=== PATIENT | female | born 1995 | race Caucasian/White ===

== ENCOUNTER 2020-09-06 16:29 | Inpatient (IN) | payer MEDICAID ==
[~2020-09-06] VITALS: Ht 160 cm; Wt 60.3 kg
[2020-09-06] MEDS ORDERED: ONDANSETRON ODT 4 MG PO PRN (17:00)
[2020-09-06] MEDS ORDERED: DOCUSATE 100 MG CAPSULE PO PRN (17:00)
[2020-09-06] MEDS ORDERED: POLYETHYLENE GLYCOL 17 GM PACKET PO PRN (17:00)
[2020-09-06] MEDS ORDERED: BISACODYL 10 MG SUPP PR PRN (17:00)
[2020-09-06 18:38] VITALS: BP 108/64
[2020-09-06 19:19] VITALS: BP 102/66
[2020-09-06 19:24] VITALS: BP 108/64
[2020-09-07 07:04] LABS: CHOLESTEROL, TOTAL 159 mg/dL (140-239); TRIGLYCERIDES 52 mg/dL (50-200); VLDL CHOLESTEROL 10 mg/dL (0-25)
[2020-09-07 07:07] LABS: CHOL/HDL RATIO 2.8; FREE T4 (FREE THYROXINE) 1.12 ng/dL (0.76-1.46); HDL CHOL % 36 % (28-40); HDL CHOLESTEROL (DIRECT) 57 mg/dL (40-60); LDL CHOLESTEROL,CALCULATED 92 mg/dL (54-169); LDL/HDL RATIO 1.6 (0.5-3.0)
[2020-09-07 07:45] VITALS: BP 93/61
[2020-09-07] MEDS: NICOTINE 7 MG/24 HR PATCH.TD24 TD SCH (08:45)
[2020-09-07] MEDS ORDERED: FLU VACC QS2020-21(6MOS UP)/PF 60MCG/0.5 ML SYR IM ONE ×2 (09:00→11:30)
[2020-09-07 13:22] LABS: MICROSCOPIC INDICATED
[2020-09-07] MEDS: ACETAMINOPHEN 325 MG TABLET PO PRN (16:29)
[2020-09-07] MEDS: CIPROFLOXACIN 250 MG TABLET PO SCH (19:36)
[2020-09-07 19:49] VITALS: BP 109/72
[2020-09-08 07:37] VITALS: BP 110/67
[2020-09-08] MEDS: CIPROFLOXACIN 250 MG TABLET PO SCH ×2 (08:25→21:00)
[2020-09-08] MEDS: BUPROPION SR 150 MG TABLET PO SCH (08:26)
[2020-09-08] MEDS: NICOTINE 7 MG/24 HR PATCH.TD24 TD SCH (08:26)
[2020-09-08] MEDS: FLUOXETINE 10 MG CAP PO SCH (08:26)
[2020-09-08] MEDS: ACETAMINOPHEN 325 MG TABLET PO PRN (09:56)
[2020-09-08] MEDS: QUETIAPINE 25MG TABLET PO PRN ×2 (09:57→20:30)
[2020-09-08 20:02] VITALS: BP 99/60
[2020-09-09 07:22] VITALS: BP 111/70
[2020-09-09] MEDS: NICOTINE 7 MG/24 HR PATCH.TD24 TD SCH (08:20)
[2020-09-09] MEDS: FLUOXETINE 10 MG CAP PO SCH (08:20)
[2020-09-09] MEDS: BUPROPION SR 150 MG TABLET PO SCH (08:22)
[2020-09-09] MEDS: CIPROFLOXACIN 250 MG TABLET PO SCH ×3 (08:22→21:24)
[2020-09-09 19:35] VITALS: BP 104/63
[2020-09-09] MEDS: QUETIAPINE 25MG TABLET PO PRN (20:09)
[2020-09-10 07:21] VITALS: BP 112/76
[2020-09-10] MEDS: FLUOXETINE 10 MG CAP PO SCH (08:09)
[2020-09-10] MEDS: NICOTINE 7 MG/24 HR PATCH.TD24 TD SCH (08:10)
[2020-09-10] MEDS: BUPROPION SR 150 MG TABLET PO SCH (08:11)
[2020-09-10] MEDS: CIPROFLOXACIN 250 MG TABLET PO SCH (08:14)
[2020-09-10] MEDS ORDERED: BUPR150T73 PO (14:43)
[2020-09-10] MEDS ORDERED: NICO-485 TD (14:43)
[2020-09-10] MEDS ORDERED: QUET25TA7 PO (14:43)
[2020-09-10] MEDS ORDERED: FLUO10CA14 PO (14:43)
[2020-09-10 19:34] VITALS: BP 102/61
[2020-09-10] MEDS: QUETIAPINE 25MG TABLET PO PRN (20:27)
[2020-09-11 07:00] VITALS: BP 112/72
[2020-09-11] MEDS: NICOTINE 7 MG/24 HR PATCH.TD24 TD SCH (08:51)
[2020-09-11] MEDS: FLUOXETINE 10 MG CAP PO SCH (08:52)
[2020-09-11] MEDS: BUPROPION SR 150 MG TABLET PO SCH (08:52)
== END 2020-09-11 09:03 | disposition home or self-care (01) | DRG 885 ==
LOC: 3E 18:02
PROVIDERS: ADMIT Psychiatry & Neurology Psychosomatic Medicine; ATTEND Psychiatry & Neurology Psychosomatic Medicine
DX: F31.30 Bipolar disorder, current episode depressed, mild or moderate severity, unspecified (principal); N39.0 Urinary tract infection, site not specified; F41.9 Anxiety disorder, unspecified; F17.210 Nicotine dependence, cigarettes, uncomplicated; E28.2 Polycystic ovarian syndrome; F44.9 Dissociative and conversion disorder, unspecified; F60.3 Borderline personality disorder; T43.592A Poisoning by other antipsychotics and neuroleptics, intentional self-harm, initial encounter; Z79.899 Other long term (current) drug therapy; Z91.5 Personal history of self-harm; Y92.89 Other specified places as the place of occurrence of the external cause
CPT/HCPCS: 36415; 71045; 80061; 81001; 84439; 84443; 84702; 87086; 90686; 93005

== ENCOUNTER 2021-01-20 20:16 | Emergency (ER) | payer MEDICAID ==
[~2021-01-20] VITALS: Ht 160 cm; Wt 59.6 kg
[~2021-01-20 20:16] MED LIST: BUPR150T73 PO; FLUO10CA15 PO; NICO-485 TD; QUET25TA7 PO
[2021-01-20 21:03] LABS: BASOPHILS % (AUTO) 0 % (0-1); EOSINOPHILS % (AUTO) 1 % (1-7); LYMPHOCYTES % (AUTO) 33 % (22-44); MEAN CORPUSCULAR HEMOGLOBIN 28.4 pg (27.0-34.8); MEAN CORPUSCULAR HGB CONC 33.6 g/dL (32.4-35.8); MEAN PLATELET VOLUME 7.9 fL (7.4-10.4); MONOCYTES % (AUTO) 6 % (2-9); NEUTROPHILS % (AUTO) 60 % (42-75); PLATELET COUNT 276 x10^3/uL (130-400); RED BLOOD COUNT 4.71 x10^6/uL (3.82-5.3); RED CELL DISTRIBUTION WIDTH 13.9 % (9.6-15.2)
[2021-01-20 21:05] LABS: MD NO
--- NOTE | 2021-01-20 21:10 | NUR ---
PT UP TO RESTROOM FOR UA
--- NOTE | 2021-01-20 21:15 | NUR ---
URINE SENT TO LAB
[2021-01-20 21:16] LABS: ALANINE AMINOTRANSFERASE 17 U/L (12-78); ALBUMIN 3.5 g/dL (3.4-5.0); ANION GAP 8 mmol/L (5-15); CALCIUM 8.1 mg/dL (8.5-10.1); CHLORIDE 111 mmol/L (98-107); CREATININE 0.54 mg/dL (0.55-1.02)
[2021-01-20 21:20] LABS: ALKALINE PHOSPHATASE 54 U/L (45-117); BILIRUBIN,TOTAL 0.7 mg/dL (0.2-1.0); TOTAL PROTEIN 6.8 g/dL (6.4-8.2)
[2021-01-20 21:28] LABS: MICROSCOPIC INDICATED
[2021-01-20 22:02] VITALS: BP 110/64
--- NOTE | 2021-01-20 22:07 | NUR ---
TASK RN: Patient given discharge instructions and they have confirmed that they understand the instructions. Patient ambulatory with steady gait. NAD, DENIES ADDITIONAL QUESTIONS OR NEEDS AT THIS TIME.
== END 2021-01-20 22:10 | disposition home or self-care (01) ==
LOC: ED 20:46
DX: R55 Syncope and collapse (principal); R50.9 Fever, unspecified; M54.5 Low back pain; R94.31 Abnormal electrocardiogram [ECG] [EKG]
CPT/HCPCS: 36415; 80053; 81001; 84703; 85025; 87077; 87086; 87186; 93005; 99284

== ENCOUNTER 2021-04-07 14:00 | Emergency (ER) | payer MEDICAID ==
[~2021-04-07] VITALS: Ht 157.5 cm; Wt 54.0 kg
--- NOTE | 2021-04-07 14:29 | NUR ---
Pt up to restroom for UA
[2021-04-07 14:45] LABS: BASOPHILS % (AUTO) 0 % (0-1); EOSINOPHILS % (AUTO) 2 % (1-7); LYMPHOCYTES % (AUTO) 27 % (22-44); MEAN CORPUSCULAR HEMOGLOBIN 28.7 pg (27.0-34.8); MEAN CORPUSCULAR HGB CONC 33.4 g/dL (32.4-35.8); MEAN PLATELET VOLUME 8.2 fL (7.4-10.4); MONOCYTES % (AUTO) 13 % (2-9); NEUTROPHILS % (AUTO) 58 % (42-75); PLATELET COUNT 197 x10^3/uL (130-400); RED BLOOD COUNT 4.69 x10^6/uL (3.82-5.3); RED CELL DISTRIBUTION WIDTH 14.7 % (9.6-15.2)
--- NOTE | 2021-04-07 14:45 | NUR ---
JAMAAL FRANCO AT BEDSIDE EVALUATING PT
[2021-04-07 14:49] LABS: MD NO
[2021-04-07 14:57] LABS: AMPHETAMINE SCREEN, URINE Negative (Negative); BARBITURATE SCREEN, URINE Negative (Negative); BENZODIAZEPINE SCREEN, URINE Negative (Negative); CANNABINOID SCREEN, URINE Positive (Negative); COCAINE SCREEN, URINE Negative (Negative); METHADONE SCREEN, URINE Negative (Negative); OPIATE SCREEN, URINE Negative (Negative)
[2021-04-07 14:57] LABS: ALBUMIN 3.5 g/dL (3.4-5.0); ANION GAP 6 mmol/L (5-15); CALCIUM 8.4 mg/dL (8.5-10.1); CHLORIDE 113 mmol/L (98-107)
[2021-04-07 14:59] LABS: SALICYLATE LEVEL < 1.7 mg/dL (2.8-20.0)
[2021-04-07 15:03] LABS: ALANINE AMINOTRANSFERASE 15 U/L (12-78); ALKALINE PHOSPHATASE 52 U/L (45-117); BILIRUBIN,TOTAL 1.1 mg/dL (0.2-1.0); CREATININE 0.61 mg/dL (0.55-1.02); TOTAL PROTEIN 6.7 g/dL (6.4-8.2)
[2021-04-07 15:10] VITALS: BP 124/60
--- NOTE | 2021-04-07 16:13 | NUR ---
Report given to ROBIN Browning
--- NOTE | 2021-04-07 16:23 | NUR ---
RECEIVED REPORT FROM SHIRAZ. PT IS RESTING ON GURNEY, REGULAR/UNLABORED RESP, NADN. SIDE RAILX 2, GARAGE DOOR DOWN X2. SITTER AT DOORWAY FOR SAFETY.
--- NOTE | 2021-04-07 16:41 | NUR ---
PT BF ARE BACK AND REQUESTING TO VISIT. PT WAS AGREEABLE TO THIS.
--- NOTE | 2021-04-07 16:50 | NUR ---
sophie Hensley, okay to update. [phone]
--- NOTE | 2021-04-07 17:13 | NUR ---
PT SLEEPING IN ROOM SIDERAIL UPX2. NADN. UNLABORED/REGULAR RESP. Addendum: 04/07/21 at 1714 by ZACHERY SITTER AT DOOR, LINE OF SIGHT TO PT
--- NOTE | 2021-04-07 17:53 | NUR ---
SBAR REPORT GIVEN TO SANTI.
--- NOTE | 2021-04-07 17:55 | NUR ---
SBAR REPORT GIVEN TO SANTI. TECH TRANSPORT TO [facility]. PT AWARE OF POC.
--- NOTE | 2021-04-07 18:09 | NUR ---
PT SLEEPING ON GURNEY, WAITING FOR TRANSPORT. NADN, REGULAR UNLABORED RESP. SITTER AT DOORWAY.
[2021-04-07] MEDS ORDERED: ACETAMINOPHEN 325 MG TABLET PO PRN (18:30)
[2021-04-07] MEDS ORDERED: ONDANSETRON ODT 4 MG PO PRN (18:30)
[2021-04-07] MEDS ORDERED: DIVALPROEX 250 MG TABLET.DR PO SCH (21:00)
[2021-04-07] MEDS ORDERED: QUETIAPINE 25MG TABLET PO SCH (21:00)
== END 2021-04-07 18:39 ==
LOC: ED 14:50 → 3E 17:54 → UNDOADMIN 17:54 → ED 18:39
DX: T14.91XA Suicide attempt, initial encounter (principal); Z20.822 Contact with and (suspected) exposure to COVID-19; F17.210 Nicotine dependence, cigarettes, uncomplicated; F41.1 Generalized anxiety disorder; F32.9 Major depressive disorder, single episode, unspecified; X58.XXXA Exposure to other specified factors, initial encounter; Y93.89 Activity, other specified; Y92.89 Other specified places as the place of occurrence of the external cause; Y99.8 Other external cause status
CPT/HCPCS: 36415; 80053; 80164; 80299; 80307; 80320; 80329; 84703; 85025; 87426; 99285; G0480

== ENCOUNTER 2021-04-07 18:45 | Inpatient (IN) | payer MEDICAID ==
[~2021-04-07] VITALS: Ht 157.5 cm; Wt 53.3 kg
[2021-04-07 19:29] VITALS: BP 107/68
[2021-04-07] MEDS ORDERED: ACETAMINOPHEN 325 MG TABLET PO PRN (20:30)
[2021-04-07] MEDS ORDERED: POLYETHYLENE GLYCOL 17 GM PACKET PO PRN (20:30)
[2021-04-07] MEDS ORDERED: BISACODYL 10 MG SUPP PR PRN (20:30)
[2021-04-07] MEDS ORDERED: DOCUSATE 100 MG CAPSULE PO PRN (20:30)
[2021-04-07] MEDS ORDERED: ONDANSETRON ODT 4 MG PO PRN (20:30)
[2021-04-07 20:58] LABS: MICROSCOPIC NOT IND
[2021-04-08 01:32] VITALS: BP 107/68
[2021-04-08 06:05] LABS: CHOL/HDL RATIO 3.1; FREE T4 (FREE THYROXINE) 0.85 ng/dL (0.76-1.46)
[2021-04-08 07:47] VITALS: BP 100/65
[2021-04-08] MEDS ORDERED: DIVALPROEX 250 MG TAB.ER.24H PO SCH (09:00)
[2021-04-08 19:36] VITALS: BP 104/65
[2021-04-08] MEDS: OXCARBAZEPINE 150 MG TABLET PO SCH (21:15)
[2021-04-09 07:23] VITALS: BP 99/63
[2021-04-09] MEDS: OXCARBAZEPINE 150 MG TABLET PO SCH ×2 (08:47→20:14)
[2021-04-09] MEDS ORDERED: LURASIDONE 20 MG TABLET PO SCH (17:00)
[2021-04-09 19:45] VITALS: BP 130/86
[2021-04-10 07:20] VITALS: BP 106/73
[2021-04-10] MEDS: OXCARBAZEPINE 150 MG TABLET PO SCH (08:16)
[2021-04-10] MEDS ORDERED: LURA20TA PO (08:48)
[2021-04-10] MEDS ORDERED: OXCA150T18 PO (08:48)
== END 2021-04-10 10:06 | disposition home or self-care (01) | DRG 885 ==
LOC: 3E 18:45
PROVIDERS: ADMIT Psychiatry & Neurology Psychosomatic Medicine; ATTEND Psychiatry & Neurology Psychosomatic Medicine
DX: F31.30 Bipolar disorder, current episode depressed, mild or moderate severity, unspecified (principal); F60.3 Borderline personality disorder; T43.592A Poisoning by other antipsychotics and neuroleptics, intentional self-harm, initial encounter; E28.2 Polycystic ovarian syndrome; F17.200 Nicotine dependence, unspecified, uncomplicated; Z79.899 Other long term (current) drug therapy; Z91.5 Personal history of self-harm; Y92.89 Other specified places as the place of occurrence of the external cause
CPT/HCPCS: 36415; 71045; 80061; 81003; 82607; 84439; 84443; 93005